=== PATIENT | female | born 1975 | race Caucasian/White ===

== ENCOUNTER 2020-04-06 15:00 | Observation (INO) ==
[2020-04-06] MEDS ORDERED: KETOROLAC TROMETHAMINE 60 MG/2 ML VIAL IM ONE (15:49)
[2020-04-06] MEDS ORDERED: ORPHENADRINE CITRATE 30 MG/ML VIAL IM ONE (15:49)
[2020-04-06] MEDS ORDERED: diphenhydrAMINE HCL 50 MG/ML VIAL IM ONE (15:49)
[2020-04-06 16:06] LABS: Hematocrit 36.5 % (37.0-47.0); Hemoglobin 11.5 gm/dL (12.5-16.0); Mean Cell Volume 90.8 fl (78-100); Mean Corpuscular Hemoglobin 28.6 pg (27-31); Mean Corpuscular Hgb Conc 31.5 g/dl (32-36); Mean Platelet Volume 9.4 fl (8-12.5); Neutrophil % 71.7 % (42-75.0); Platelet Count 344 K/mm3 (150-450); Red Blood Count 4.02 M/mm3 (4.2-5.4); Red Cell Distribution Width 14.3 % (11.5-14.0); White Blood Count 9.7 K/mm3 (4.0-10.5)
[2020-04-06 16:22] LABS: Albumin * 3.6 gm/dl (3.4-5.0); Anion Gap 13.1 mmol/L (6.8-13.8); BUN/Creatinine Ratio 22.5 (9.0-21.6); Bilirubin, Total 0.3 mg/dL (0.0-1.1); CRP 0.5 mg/dL (0.0-0.9); Ca. Corrected For Albumin 9.4 mg/dL (8.4-10.2); Calcium * 9.4 mg/dL (7.9-10.9); Carbon Dioxide 25.8 mmol/L (24-32.6); Potassium 3.9 mmol/L (3.4-4.6); Total Protein 7.2 gm/dL (6.2-8.2)
--- NOTE | 2020-04-06 17:08 | ERNOTE ---
Back Pain ER HPI Date of Service: 04/06/20 Presenting Symptoms: other - back pain Time Seen by Provider: 04/06/20 15:29 Source: patient Exam Limitations: no limitations Immunizations: IMMUNIZATION HX Immunizations Up to Date Yes History of Influenza Vaccine Yes Hx Pneumococcal Vaccination No Allergies/Adverse Reactions: Allergies cephalexin Allergy (Verified 04/06/20 15:13) Home Medications: HOME MEDICATIONS NK 04/06/20 [Last Taken Unknown] Narrative: Patient presents to the ED for back pain. She started having pain 3 days ago. neck/upper back that settled in low mid sacrum and low back. Severe pain. No trauma. Worse with movement but constant./ Never had anything like this before. No CP or SOB. No fever. Pain severe. Over the last 24 hours has developed bilateral leg numbness and pain in legs with 60% subjective leg weakness. This has been gradually progressive. No loss of bowel or bladder control. State her legs have felt like noodles for a day. Timing: Reports: constant, getting worse Quality/Severity: Reports: severe Location of pain: Reports: other - low back Activities at Onset: Reports: none Recent Injury?: Reports: no Possible Precipitating Factor: Reports: none Modifying Factors - (Improves): Reports: other - rest Modifying Factors - (Worsens): Reports: other - movement Associated Symptoms: Reports: numbess/weakness in legs. Denies: fever/chills, constipation/incontinence, nausea/vomiting, problems urinating Prior Treament: Denies: recently seen, similar symptoms before Review of Systems - Review of Systems Constitutional: Absent: fever EYE: Present: no symptoms reported Respiratory: Absent: shortness of breath Cardiology: Absent: chest pain Gastrointestinal/Abdominal: Absent: abdominal pain Musculoskeletal: Present: See HPI Skin: Absent: rash Neurological: Present: See HPI All Other Systems: All systems neg except as marked Medical History (Last Reviewed 04/06/20 @ 19:05 by Rich James MD) No pertinent past medical history Surgical History: Surgical History (Last Reviewed 04/06/20 @ 19:05 by Rich James MD) H/O tubal ligation Hx of cholecystectomy Family History: Family History (Last Reviewed 04/06/20 @ 19:05 by Rich James MD) Other No pertinent family history Physical Exam - Physical Exam General Appearance: Present: alert, other - mild distress d/t pain Head Exam: Present: normal inspection, no evidence of injury Eye Exam: Normal inspection: bilateral, PERRL: bilateral Ears, Nose, Throat: Present: normal ENT inspection Neck: Present: normal inspection. Absent: tender posterior midline Respiratory: Present: no respiratory distress, normal breath sounds, no accessory muscle use, lungs clear Cardiovascular/Chest: Present: regular rate, rhythm Gastrointestinal/Abdominal: Present: normal bowel sounds, nontender, nondistended, soft Back Exam: Present: other - lumbar tenderenss to palpation. No thoracic tenderness. Extremity Exam: Present: non-tender Neurological Exam: Present: alert, other - rectal exam reveals normal rectal tone. Patellar tendon reflexes equal and symmetric. She can stand but fels subjectively weak. LT sensation intact. Skin Exam: Present: normal color, warm/dry Progress - Results and Orders Patient's Lab Results:: I have reviewed the patient's lab results. - Vital Signs Patient's Vital Signs:: I have reviewed the patient's vital signs. Vital Signs: Vital Signs 04/06/20 15:05 Temperature 36.8 C Pulse Rate 86 Respiratory Rate 16 Blood Pressure 162/72 H O2 Sat by Pulse Oximetry 98 - X-Ray X-Ray #1 X-Ray: lumbosacral Interpretation: Interp. by me X-ray Comments: I personally reviewed official radiology report - CT/Ultrasound CT/Ultrasound Narrative: I personally reviewed the official radiology report for lumbar CT. - Progress/Reassessment Chief Complaint: Back Pain Progress Note-Subjective: 04/06/20 19:32 Given the abnormal subjective strength and the CT Lumbar spine as noted above she needs MRI to rule out cauda equina syndrome. I called [facility], they cannot accept patient for MRI as the hospital is full. I had just spoke with [facility] and they are full. 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 I offered to start calling facilities farther away but patient did not want that. We can do MRI at 0630 am here. Patient understands that she could deteriorate in the interim but accepts that risk, currently can walk and has rectal tone and bilateral reflexes but she undersatnds that she xould decompensate and accepts that risk to stay here for early am MRI. Cauda equina syndrome must be ruled out and she needs neuro checks and pain control pending early am MRI. Also bt the time transfer to farther facility could be obtained it may indeed be quicker to get the HILDA scan here given transfer and transport times. Patient understands and accepts risks. Dr Espinosa was contacted and asked me to order MRI for AM and she will see the patient. Departure Clinical Impression: Intractable low back pain, Leg weakness - Departure Disposition: Still a patient Condition: Fair
[2020-04-06 17:10] LABS: Urine Bilirubin Negative (NEGATIVE); Urine Ketone Negative (NEGATIVE); Urine Nitrite Negative (NEGATIVE); Urine Protein Negative (NEGATIVE); Urine Specific Gravity >=1.030 SP.GR. (1.005-1.010); Urine Urobilinogen Normal (NORMAL); Urine pH 5.5 pH (5.0-7.0)
[2020-04-06] MEDS ORDERED: METHYLPREDNISOLONE SOD SUCC/PF 125 MG/2 ML VIAL IM ONE (17:10)
[2020-04-06] MEDS ORDERED: MORPHINE SULFATE 4 MG/ML SYRG IM ONE (17:10)
[2020-04-06 17:16] LABS: Urine Appearance Clear (CLEAR); Urine Blood 5 /ul (NEGATIVE); Urine Color Yellow
[2020-04-06 17:17] LABS: Urine Bacteria None Seen; Urine RBC 0-5 /hpf (0-5); Urine WBC None Seen /hpf (0-5)
[2020-04-06] MEDS ORDERED: MORPHINE SULFATE 4 MG/ML SYRG IV ONE (19:00)
[2020-04-06] MEDS ORDERED: NORMAL SALINE 1,000 ML IV ONE (19:09)
[2020-04-06] MEDS ORDERED: ACETAMINOPHEN 325 MG TABLET PO PRN (19:12)
[2020-04-06] MEDS ORDERED: amLODIPine BESYLATE 5 MG TABLET PO ONE (19:37)
--- NOTE | 2020-04-06 20:00 | HP ---
Chief Complaint - Chief Complaint Date of Service: 04/06/20 Time of Service: 19:37 Chief Complaint: I have back pain and weakness in the legs History of Present Illness: 44-year-old female with no significant past medical history was evaluated in the ER for persistent back pain back pain radiating down her lower extremities accompanied by weakness in the lower extremities that started 2 days ago. Patient denies any issues with her back she denies ever having pain or neuropathy. Several years ago she did have surgery in her cervical neck area for discopathy but since then there has been no issues with her neck. Patient reports 2 days ago she spontaneously started having lower lumbar pain that shot down her lower extremities and yesterday her lower extremities became weak. Patient describes her legs feeling like noodles, she also reports numbness in her lower extremities. She does however deny loss of sphincter control and says she has been moving her bowels without any issues. Patient denies any recent injury or lifting any heavy objects. Medical History (Last Reviewed 04/06/20 @ 19:05 by Rich James MD) No pertinent past medical history Surgical History: Surgical History (Last Reviewed 04/06/20 @ 19:05 by Rich James MD) H/O tubal ligation Hx of cholecystectomy Family History: Family History (Last Reviewed 04/06/20 @ 19:05 by Rich James MD) Other No pertinent family history Peds Patient Hx - Developmental: No Pertinent Hx Peds Patient Hx - Medical: No Pertinent Hx Peds Patient Hx - Cardiac/Respiratory: No Pertinent Hx Peds Patient Hx - Surgical: No Surgical History Patient History - Cancer: No Hx of Cancer Review Of Systems (GEN) - Review of Systems Generalized/Overall Review: Present: No Symptoms Reported EENTM: Present: No Symptoms Reported Respiratory: Present: No Symptoms Reported Cardiac: Present: No Symptoms Reported Abdominal: Present: No Symptoms Reported Genitourinary: Present: No Symptoms Reported Musculoskeletal: Present: Back Pain Neurological: Present: Numbness - Numbness in lower extremities Skin: Present: No Symptoms Reported Endocrine: Present: No Symptoms Reported Immunizations: IMMUNIZATION HX Immunizations Up to Date Yes History of Influenza Vaccine Yes Hx Pneumococcal Vaccination No Allergies/Adverse Reactions: Allergies Allergy/AdvReac Type Severity Reaction Status Date / Time cephalexin Allergy Verified 04/06/20 15:13 Home Medications: HOME MEDICATIONS NK 04/06/20 [Last Taken Unknown] Exam - Exam Vital Signs: Vital Signs - Last Taken Temp 36.8 C 04/06/20 15:05 Pulse 85 04/06/20 19:33 Resp 18 04/06/20 19:33 BP 143/94 H 04/06/20 19:33 Pulse Ox 98 04/06/20 19:33 Constitutional: Present: Alert, Oriented x3, Cooperative, Well developed, Well nourished, No distress, Morbidly obese ENT Exam: Present: normal ENT inspection, hearing grossly normal, pharynx normal, TMs normal Eye Exam: bilateral eye: normal inspection, PERRL, EOMI Neck: Present: non-tender, full range of motion, supple, normal inspection, trachea midline Back Exam: Present: normal inspection, no CVA tenderness, decreased range of motion, vertebral tenderness - Lower lumbar tenderness Breasts: Present: Exam deferred Respiratory: Present: chest non-tender, lungs clear, normal breath sounds, no respiratory distress, no accessory muscle use Cardiovascular/Chest: Present: normal peripheral pulses, regular rate, rhythm, no chest tenderness, no edema, no gallop, no JVD, no murmur, no rub Peripheral Pulses: dorsalis-pedis (R): 3+, dorsalis-pedis (L): 3+ Abdomen: Present: Normal bowel sounds, soft, nontender, nondistended, no rebound tenderness, no hepatospenomegaly, obese /Rectal: Present: Exam deferred Extremity: Present: normal range of motion, non-tender, normal inspection, no pedal edema, no calf tenderness, normal capillary refill, pelvis stable Skin Exam: Present: normal color, warm/dry, no cyanosis Lymphatic: Present: no adenopathy 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, no motor/sensory deficits, alert, normal mood/affect, oriented x 3, sensory deficit - Numbness in right lower extremity Appearance: Present: appropriate appearance, appropriate insight, neat, no memory impairment Eye contact: Present: cooperative, good eye contact, normal speech Thoughts: Present: normal thought pattern, no apparent hallucination Diagnostic Studies: Abnormal Lab Results 04/06/20 04/06/20 04/06/20 Range/Units 15:58 15:58 17:00 RBC 4.02 L (4.2-5.4) M/mm3 Hgb 11.5 L (12.5-16.0) gm/dL Hct 36.5 L (37.0-47.0) % MCHC 31.5 L (32-36) g/dl RDW 14.3 H (11.5-14.0) % Lymphocytes % 16.2 L (20-51) % Eosinophils % 3.9 H (0.0-3.0) % Neutrophils # 7.0 H (1.3-6.0) K/mm3 BUN/Creatinine Ratio 22.5 H (9.0-21.6) Alkaline Phosphatase 41 L (50-170) U/L Urine Blood 5 H (NEGATIVE) /ul Ur Epithelial Cells 5-10 H (0-5) /hpf Laboratory Results WBC 9.7 K/mm3 (4.0-10.5) 04/06/20 15:58 RBC 4.02 M/mm3 (4.2-5.4) L 04/06/20 15:58 Hgb 11.5 gm/dL (12.5-16.0) L 04/06/20 15:58 Hct 36.5 % (37.0-47.0) L 04/06/20 15:58 MCV 90.8 fl (78-100) 04/06/20 15:58 MCH 28.6 pg (27-31) 04/06/20 15:58 MCHC 31.5 g/dl (32-36) L 04/06/20 15:58 RDW 14.3 % (11.5-14.0) H 04/06/20 15:58 Plt Count 344 K/mm3 (150-450) 04/06/20 15:58 MPV 9.4 fl (8-12.5) 04/06/20 15:58 Immature Gran % (Auto) 0.20 % (0.001-0.429) 04/06/20 15:58 Immature Gran # (Auto) 0.02 K/mm3 (0.000-0.0310) 04/06/20 15:58 Neutrophils % 71.7 % (42-75.0) 04/06/20 15:58 Lymphocytes % 16.2 % (20-51) L 04/06/20 15:58 Monocytes % 7.5 % (0.0-9) 04/06/20 15:58 Eosinophils % 3.9 % (0.0-3.0) H 04/06/20 15:58 Basophils % 0.5 % (0.0-1.0) 04/06/20 15:58 Nucleated RBC % 0.0 k/mm3 (0-1) 04/06/20 15:58 Neutrophils # 7.0 K/mm3 (1.3-6.0) H 04/06/20 15:58 Lymphocytes # 1.57 k/mm3 (1.5-3.5) 04/06/20 15:58 Monocytes # 0.7 k/mm3 (0.0-1.0) 04/06/20 15:58 Eosinophils # 0.4 k/mm3 (0.0-0.7) 04/06/20 15:58 Absolute Basophils 0.1 k/mm3 (0.0-0.1) 04/06/20 15:58 Sodium 140 mmol/L (132-142) 04/06/20 15:58 Plasma Sodium 140 mmol/L (130-142) 04/06/20 15:58 Potassium 3.9 mmol/L (3.4-4.6) 04/06/20 15:58 Chloride 105 mmol/L (97-106) 04/06/20 15:58 Carbon Dioxide 25.8 mmol/L (24-32.6) 04/06/20 15:58 Anion Gap 13.1 mmol/L (6.8-13.8) 04/06/20 15:58 BUN 20 mg/dL (3-23) 04/06/20 15:58 Creatinine 0.89 mg/dL (0.4-1.4) 04/06/20 15:58 Est GFR (Non-Af Amer) 74 mL/min (60-130) 04/06/20 15:58 BUN/Creatinine Ratio 22.5 (9.0-21.6) H 04/06/20 15:58 Random Glucose 94 mg/dL (70-110) 04/06/20 15:58 Calcium 9.4 mg/dL (7.9-10.9) 04/06/20 15:58 Calcium Adj for Albumin 9.4 mg/dL (8.4-10.2) 04/06/20 15:58 Total Bilirubin 0.3 mg/dL (0.0-1.1) 04/06/20 15:58 AST 26 U/L (0-48) 04/06/20 15:58 ALT 34 U/L (19-67) 04/06/20 15:58 Alkaline Phosphatase 41 U/L (50-170) L 04/06/20 15:58 C-Reactive Prot, Quant 0.5 mg/dL (0.0-0.9) 04/06/20 15:58 Total Protein 7.2 gm/dL (6.2-8.2) 04/06/20 15:58 Albumin 3.6 gm/dl (3.4-5.0) 04/06/20 15:58 Urine Color Yellow 04/06/20 17:00 Urine Appearance Clear (CLEAR) 04/06/20 17:00 Urine pH 5.5 pH (5.0-7.0) 04/06/20 17:00 Ur Specific [place] >=1.030 SP.GR. (1.005-1.010) 04/06/20 17:00 Urine Protein Negative mg/dL (NEGATIVE) 04/06/20 17:00 Urine Glucose (UA) Negative mg/dL (NEGATIVE) 04/06/20 17:00 Urine Ketones Negative mg/dL (NEGATIVE) 04/06/20 17:00 Urine Blood 5 /ul (NEGATIVE) H 04/06/20 17:00 Urine Nitrate Negative (NEGATIVE) 04/06/20 17:00 Urine Bilirubin Negative mg/dl (NEGATIVE) 04/06/20 17:00 Urine Urobilinogen Normal EU/dl (NORMAL) 04/06/20 17:00 Ur Leukocyte Esterase Negative /ul (NEGATIVE) 04/06/20 17:00 Urine RBC 0-5 /hpf (0-5) 04/06/20 17:00 Urine WBC None seen /hpf (0-5) 04/06/20 17:00 Ur Epithelial Cells 5-10 /hpf (0-5) H 04/06/20 17:00 Urine Bacteria None seen (NONE) 04/06/20 17:00 Urine Culture Comments No culture indicated 04/06/20 17:00 Assessment/Plan - Narrative Narrative: Patient was evaluated medical chart was reviewed and [facility] diagnosis of acute low back pain with sciatica was made. Patient appears comfortable at the moment but reports continued pain in her lower back, will manage pain with Toradol to be administered every 6 hours as needed. Her blood pressure is elevated most likely related to her pain but she will be administered antihypertensive. CT of the patient's back revealed mostly chronic findings such as spinal stenosis, and disc bulge but nothing acute, MRI of the lumbar region was recommended. We will get this MRI tomorrow morning for further evaluation of the patient's back pain. - Assessment/Plan (1) Intractable low back pain Problem: Acute (2) Leg weakness Problem: Acute (3) L4-L5 disc bulge Problem: Acute (4) Foraminal stenosis of lumbar region Problem: Acute (5) Morbid obesity Problem: Chronic (6) Sciatica Problem: Acute
[2020-04-06] MEDS: KETOROLAC TROMETHAMINE 30 MG/ML VIAL IV PRN (22:33)
[2020-04-07] MEDS: KETOROLAC TROMETHAMINE 30 MG/ML VIAL IV PRN (06:30)
[2020-04-07] MEDS ORDERED: amLODIPine BESYLATE 5 MG TABLET PO SCH (10:00)
[2020-04-07] MEDS ORDERED: MORPHINE SULFATE 2 MG/ML DISP.SYRIN IV PRN (10:17)
--- NOTE | 2020-04-07 10:22 | PN ---
Subjective - Date and Time Seen Date: 04/07/20 Time: 10:18 Subjective Narrative: I still have back pain Objective Objective Narrative: 44-year-old female admitted for intractable lower lumbar pain with neuropathy was evaluated at bedside was found to be afebrile and in no acute distress. Patient continues to complain of significant lumbar pain and numbness that is worse on the right lower extremity. MRI of the patient's lumbar region revealed a 5 mm cyst that is producing mass-effect on her spinal cord, she was also found to have multiple bulging disc in her lower lumbar region. Patient denies lifting heavy objects or repetitive bending motion so she is unable to explain what could have caused this. We attempted to reach a neurosurgeon at [facility] for consultation and to discuss the patient's case, however the on-call neurosurgeon is currently in surgery. We will attempt to get in contact with another neurosurgeon or wait for his call sometime this afternoon. In the meantime the patient's pain medications were optimized for better control of her pain, she denies any new symptoms. - Review of Systems Generalized/Overall Review: Reports: No Symptoms Reported EENTM: Reports: No Symptoms Reported Respiratory: Reports: No Symptoms Reported Cardiac: Reports: No Symptoms Reported Abdominal: Reports: No Symptoms Reported Genitourinary Symptoms: Reports: No Symptoms Reported Musculoskeletal Complaints: Reports: Back Pain Neurological: Reports: Numbness Skin: Reports: No Symptoms Reported Endocrine: Reports: No Symptoms Reported - Vitals Vitals: Last Vital Signs Temp 36.9 C 04/07/20 09:57 Pulse 80 04/07/20 09:57 Resp 16 04/07/20 09:57 BP 149/79 H 04/07/20 09:57 Pulse Ox 96 04/07/20 09:57 - Abnormal Lab Findings Abnormal Lab Findings: Abnormal Lab Results 04/06/20 04/06/20 04/06/20 Range/Units 15:58 15:58 17:00 RBC 4.02 L (4.2-5.4) M/mm3 Hgb 11.5 L (12.5-16.0) gm/dL Hct 36.5 L (37.0-47.0) % MCHC 31.5 L (32-36) g/dl RDW 14.3 H (11.5-14.0) % Lymphocytes % 16.2 L (20-51) % Eosinophils % 3.9 H (0.0-3.0) % Neutrophils # 7.0 H (1.3-6.0) K/mm3 BUN/Creatinine Ratio 22.5 H (9.0-21.6) Alkaline Phosphatase 41 L (50-170) U/L Urine Blood 5 H (NEGATIVE) /ul Ur Epithelial Cells 5-10 H (0-5) /hpf - Exam Constitutional: Present: Alert, Oriented x3, Cooperative, Well developed, No distress, Morbidly obese ENT Exam: Present: normal ENT inspection, hearing grossly normal, pharynx normal, TMs normal Neck: Present: non-tender, full range of motion, supple, normal inspection, trachea midline Breasts: Present: Exam deferred, Nontender Respiratory: Present: chest non-tender, lungs clear, normal breath sounds, no respiratory distress Cardiovascular/Chest: Present: normal peripheral pulses, regular rate, rhythm, no chest tenderness, no edema, no gallop, no JVD, no murmur, no rub Abdomen: Present: Normal bowel sounds, soft, nontender, nondistended, no rebound tenderness, no hepatospenomegaly, no masses, obese /Rectal: Present: Exam deferred Extremity: Present: normal range of motion, non-tender, normal inspection, no pedal edema, no calf tenderness, normal capillary refill, pelvis stable Skin Exam: Present: normal color, warm/dry, no cyanosis Lymphatic: Present: no adenopathy 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 We will follow-up with neurosurgery in order to determine the best course of action to address her back pain. - Problems/Diagnosis (1) Intractable low back pain Problem: Acute (2) Leg weakness Problem: Acute (3) L4-L5 disc bulge Problem: Acute (4) Foraminal stenosis of lumbar region Problem: Acute (5) Morbid obesity Problem: Chronic (6) Sciatica Problem: Acute (7) Bulging discs Problem: Acute (8) Synovial cyst of lumbar spine Problem: Acute
[2020-04-07] MEDS ORDERED: clonazePAM 0.5 MG TABLET PO PRN (11:25)
--- NOTE | 2020-04-07 13:53 | DS ---
(1) Intractable low back pain Problem: Resolved (2) Leg weakness Problem: Acute (3) L4-L5 disc bulge Problem: Acute (4) Foraminal stenosis of lumbar region Problem: Acute (5) Morbid obesity Problem: Chronic (6) Sciatica Problem: Acute (7) Bulging discs Problem: Chronic (8) Synovial cyst of lumbar spine Problem: Acute Date of Discharge:: 04/07/20 Hospital Course: 44-year-old female admitted for intractable abdominal pain due to a synovial lumbar cysts as shown clinical improvement and is ready to go home. Patient's pain has improved with the medication she was administered earlier tojhonathan ay. Her case was discussed with the neurosurgeon at [facility] and he reports not being concerned about her condition given the small size of the synovial cyst and its location. The doctor recommended discharging the patient with a Medrol Dosepak in order to treat the inflammation and pain meds, he also instructed that she follow-up with her primary care doctor in order to determine if she will need physical therapy to address back pain. This was all explained to the patient and she was happy to hear that she is going home. So she will be provided with a prescription for pain meds as well as a Medrol Dosepak as instructed. Procedures Performed: none Results and Findings: Lab Pending Results 04/06/20 15:58: WBC 9.7, RBC 4.02 L, Hgb 11.5 L, Hct 36.5 L, MCV 90.8, MCH 28.6, MCHC 31.5 L, RDW 14.3 H, Plt Count 344, MPV 9.4, Immature Gran % (Auto) 0.20, Immature Gran # (Auto) 0.02, Neutrophils % 71.7, Lymphocytes % 16.2 L, Monocytes % 7.5, Eosinophils % 3.9 H, Basophils % 0.5, Nucleated RBC % 0.0, Neutrophils # 7.0 H, Lymphocytes # 1.57, Monocytes # 0.7, Eosinophils # 0.4, Absolute Basophils 0.1 04/06/20 15:58: Sodium 140, Plasma Sodium 140, Potassium 3.9, Chloride 105, Carbon Dioxide 25.8, Anion Gap 13.1, BUN 20, Creatinine 0.89, Est GFR (Non-Af Amer) 74, BUN/Creatinine Ratio 22.5 H, Random Glucose 94, Calcium 9.4, Calcium Adj for Albumin 9.4, Total Bilirubin 0.3, AST 26, ALT 34, Alkaline Phosphatase 41 L, C-Reactive Prot, Quant 0.5, Total Protein 7.2, Albumin 3.6 04/06/20 17:00: Urine Color Yellow, Urine Appearance Clear, Urine pH 5.5, Ur Specific [place] >=1.030, Urine Protein Negative, Urine Glucose (UA) Negative, Urine Ketones Negative, Urine Blood 5 H, Urine Nitrate Negative, Urine Bilirubin Negative, Urine Urobilinogen Normal, Ur Leukocyte Esterase Negative, Urine RBC 0-5, Urine WBC None seen, Ur Epithelial Cells 5-10 H, Urine Bacteria None seen, Urine Culture Comments No culture indicated Discharge Location: Home Disposition: Home self-care Condition: Fair Discharge Activity: Activity as tolerated Discharge Diet: General/regular food Prescriptions (Any new or edited meds): Methylprednisolone [Medrol Dosepak] 4 mg PO QID #21 tab Tramadol HCl [Rybix Odt] 50 mg PO Q6H PRN #30 tab.rapdis PRN Reason: Pain Complete Home Medications List: Complete Home Medication List: Methylprednisolone [Medrol Dosepak] 4 mg PO QID #21 tab 04/07/20 Tramadol HCl [Rybix Odt] 50 mg PO Q6H PRN #30 tab.rapdis 04/07/20 amLODIPine BESYLATE [Norvasc] 5 mg PO DAILY tablet 04/07/20 clonazePAM [Klonopin] 0.5 mg PO TID PRN 04/07/20 clonazePAM [Klonopin] 0.5 mg PO TID PRN tablet 04/07/20
[2020-04-07 14:49] VITALS: BP 139/97
== END 2020-04-07 14:45 | disposition home or self-care (01) ==
LOC: MS 15:00 → ER 15:00 → MS 19:40
PROVIDERS: ADMIT Family Medicine; ATTEND Family Medicine